=== PATIENT | female | born 1980 | race Caucasian/White ===

== ENCOUNTER 2020-07-10 15:21 | Emergency (ER) | payer OTHER ==
[2020-07-10 17:46] LABS: CORONAVIRUS 2019 SARS-COV-2 NEGATIVE (NEGATIVE); INFLUENZA A NAA NEGATIVE (NEGATIVE)
[2020-07-10] MEDS ORDERED: IBUPROFEN800 MG PO (18:15)
== END 2020-07-10 18:25 | disposition home or self-care (01) ==
LOC: FER 15:21
PROVIDERS: Emergency Medicine
DX: J06.9 Acute upper respiratory infection, unspecified (principal); R59.0 Localized enlarged lymph nodes; F17.200 Nicotine dependence, unspecified, uncomplicated; Z88.0 Allergy status to penicillin; Z20.822 Contact with and (suspected) exposure to COVID-19
CPT/HCPCS: 87880; 99284; U0002

== ENCOUNTER 2021-07-01 11:53 | Emergency (ER) | payer OTHER ==
[~2021-07-01 11:53] MED LIST: IBUPROFEN800 MG PO
[2021-07-01 12:44] LABS: BASOPHIL 0.4 % (0-2); EOSINOPHIL 1.6 % (0-5); HCT 43.4 % (37.0-47.0); HGB 14.2 g/dl (12.5-16.0); LYMPHOCYTE 39.7 % (15-48); MCH 30.9 pg (25.0-31.0); MCHC 32.7 g/dL (32.0-36.0); MCV 94.3 fL (78.0-100.0); MONOCYTE 8.6 % (0-12); MPV 10.1 fL (6.0-9.5); NEUTROPHIL 49.4 % (41-80); NRBC 0; PLT 265 K/uL (150-400); RDW 14.5 % (11.5-14.0); WBC 7.6 K/uL (4.0-10.5)
[2021-07-01 12:49] LABS: BILIRUBIN NEGATIVE (NEGATIVE); BLOOD TRACE-INTACT Ery/uL (NEGATIVE); CLARITY CLOUDY (CLEAR); COLOR YELLOW (YELLOW); GLUCOSE (U) NORMAL (NORMAL); LEUKOCYTES TRACE Leu/uL (NEGATIVE); NITRITE NEGATIVE (NEGATIVE); PROTEIN NEGATIVE (NEGATIVE); SPECIFIC GRAVITY 1.025 (1.001-1.030); UROBILINOGEN 0.2 mg/dL (0.2-1.0)
[2021-07-01 13:02] LABS: SQUAMOUS EPITHELIAL CELLS 20-50
[2021-07-01 13:03] LABS: BACTERIA 2+
[2021-07-01 13:08] LABS: ALBUMIN 4.1 g/dL (3.4-5.0); BILIRUBIN - TOTAL 0.2 mg/dL (0.2-1.0); BUN/CREAT RATIO (CALC) 9.8 RATIO; CREATININE 0.61 mg/dL (0.51-0.95); GLOBULIN (CALCULATION) 3.1 g/dL; POTASSIUM 3.4 mmol/L (3.5-5.1); TOTAL PROTEIN 7.2 g/dL (6.4-8.2)
[2021-07-01 13:12] LABS: CORONAVIRUS 2019 SARS-COV-2 NEGATIVE (NEGATIVE); INFLUENZA A NAA NEGATIVE (NEGATIVE)
[2021-07-01] MEDS ORDERED: FLEXERIL5 MG PO (15:00)
== END 2021-07-01 15:14 | disposition home or self-care (01) ==
LOC: FER 11:53
PROVIDERS: Physician Assistant
DX: S39.012A Strain of muscle, fascia and tendon of lower back, initial encounter (principal); B34.9 Viral infection, unspecified; F17.200 Nicotine dependence, unspecified, uncomplicated; Z20.822 Contact with and (suspected) exposure to COVID-19; Z88.1 Allergy status to other antibiotic agents; W01.0XXA Fall on same level from slipping, tripping and stumbling without subsequent striking against object, initial encounter
CPT/HCPCS: 36415; 72050; 72110; 80053; 81001; 83690; 85025; 87088; U0002